=== PATIENT | female | born 1990 | race Caucasian/White ===

== ENCOUNTER 2023-03-30 16:17 | Inpatient (IN) | payer OTHER ==
[2023-03-30 17:09] VITALS: BMI 21.4
[2023-03-30] MEDS ORDERED: POLYETHYLENE GLYCOL (HEALTHYLAX) 3350 17 GM PACKET PO PRN (19:42)
[2023-03-30] MEDS ORDERED: IBUPROFEN 600 MG TABLET (FP) PO PRN (19:42)
[2023-03-30] MEDS ORDERED: hydrOXYzine PAMOATE 25 MG CAPSULE (FP) PO PRN ×2 (19:42→20:19)
[2023-03-30] MEDS ORDERED: NICOTINE 10 MG CARTRIDGE (INHALER) IH PRN (19:42)
[2023-03-30] MEDS ORDERED: BENZOCAINE/MENTHOL (CHLORASEPTIC ) LOZENGE MM PRN (19:42)
[2023-03-30] MEDS ORDERED: COLLOIDAL OATMEAL 1 BAR EACH TP PRN (19:42)
[2023-03-30] MEDS ORDERED: LOPERAMIDE HCL 2 MG CAPSULE PO PRN (19:42)
[2023-03-30] MEDS ORDERED: MELATONIN 5 MG TABLETS PO PRN (19:42)
[2023-03-30] MEDS ORDERED: MAGNESIUM HYDROX 2400MG/30ML ORAL SUSPENSION 30 ML CUP PO PRN (19:42)
[2023-03-30] MEDS ORDERED: ACETAMINOPHEN 325 MG TABLET (FP) PO PRN (19:42)
[2023-03-30] MEDS ORDERED: IBUPROFEN 400 MG TABLET (FP) PO PRN (19:42)
[2023-03-30] MEDS ORDERED: P-EPHED 60MG/TRIPROLIDI 2.5MG TABLET PO PRN (19:42)
[2023-03-30] MEDS ORDERED: MAG HYDROX/AL HYDROX/SIMETH 30 ML UNIT-DOSE CUP PO PRN (19:42)
[2023-03-30] MEDS ORDERED: BENZONATATE 200 MG CAPSULE PO PRN (19:42)
[2023-03-30] MEDS ORDERED: AMMONIUM LACTATE 12% LOTION 225 GM BOTTLE TP PRN (19:42)
[2023-03-30] MEDS ORDERED: guaiFENesin 600 MG TABLET.ER (FP) PO PRN (19:42)
[2023-03-30] MEDS ORDERED: TUBERCULIN PPD 5 TU/0.1ML SYRINGE (IN PATIENT USE ONLY) ID ONE (20:30)
[2023-03-30 21:29] VITALS: RESP 18
[2023-03-30] MEDS ORDERED: THIAMINE HCL 100 MG TABLET (FP) PO SCH (22:00)
[2023-03-30] MEDS: ALBUTEROL SO4 HFA INHALER IH PRN (22:17)
[2023-03-30] MEDS: metroNIDAZOLE 500 MG TABLET PO SCH (22:36)
[2023-03-30] MEDS ORDERED: ONDANSETRON *ODT* 4 MG TABLET SL PRN (23:33)
[2023-03-31 07:15] VITALS: BP 109/74; PULSE 68; TEMP 97.2
[2023-03-31] MEDS ORDERED: diazePAM 5 MG TABLET PO PRN (07:57)
[2023-03-31] MEDS: metroNIDAZOLE 500 MG TABLET PO SCH (09:45)
[2023-03-31] MEDS: ALBUTEROL SO4 HFA INHALER IH PRN (09:48)
[2023-03-31] MEDS ORDERED: EMTRICITABINE 200MG/TENOFOVIR 300MG PO SCH (10:00)
[2023-03-31] MEDS ORDERED: PRENATAL VITAMINS W/ FOLIC ACID TABLET (FP) PO SCH (10:00)
[2023-03-31 12:08] LABS: HEMATOCRIT 40.1 % (32.4-45.2); MCH 29.3 pg (25.7-33.7); MCHC 32.5 g/dl (32.0-36.0); MEAN CELL VOLUME 90.2 fl (80-96); MEAN PLT VOLUME 10.6 fl (7.5-11.1); PLATELET COUNT 318 10^3/uL (134-434); RBC 4.45 M/mm3 (3.60-5.2); RDW 13.8 % (11.6-15.6); WHITE BLOOD COUNT 5.3 K/mm3 (4.0-10.0)
[2023-03-31 12:11] LABS: POTASSIUM 5.1 mmol/L (3.5-5.1)
[2023-03-31 12:14] LABS: CALCIUM 9.3 mg/dL (8.5-10.1)
[2023-03-31 12:15] LABS: ALBUMIN 3.5 g/dl (3.4-5.0); BLOOD UREA NITROGEN 13.9 mg/dL (7-18)
[2023-03-31 12:18] LABS: CREATININE 0.8 mg/dL (0.55-1.3)
[2023-03-31 12:20] LABS: BILIRUBIN,TOTAL 0.9 mg/dL (0.2-1)
[2023-03-31 12:21] LABS: TOT PROT 6.6 g/dl (6.4-8.2)
[2023-03-31 12:42] LABS: SYPHILIS W/ RPR CONF NON-REACTIVE (NONREACTIVE)
[2023-03-31 17:29] LABS: PH,URINE 7.5 (5.0-8.0); URINE APPEARANCE CLEAR; URINE BILIRUBIN NEGATIVE (NEGATIVE); URINE COLOR YELLOW; URINE GLUCOSE (UA) NEGATIVE (NEGATIVE); URINE KETONE NEGATIVE (NEGATIVE); URINE LEUK ESTERASE NEGATIVE (NEGATIVE); URINE NITRITE NEGATIVE (NEGATIVE); URINE PROTEIN NEGATIVE (NEGATIVE); URINE UROBILINOGEN 0.2 mg/dL (0.2-1.0)
[2023-04-02] MEDS ORDERED: FLUCONAZOLE 50 MG TABLET PO ONE (10:00)
== END 2023-03-31 17:27 | disposition left against medical advice (07) | DRG 770 ==
LOC: YASAS 16:17 → Y5N 18:45
PROVIDERS: ADMIT Allergy & Immunology; ATTEND Psychiatry & Neurology Pain Medicine
PROC: HZ42ZZZ Group Counseling for Substance Abuse Treatment, Cognitive-Behavioral (ICD-10-PCS; principal; 2023-03-30)
DX: F14.20 Cocaine dependence, uncomplicated (principal); F15.20 Other stimulant dependence, uncomplicated; F17.290 Nicotine dependence, other tobacco product, uncomplicated
CPT/HCPCS: 36415; 80053; 81003; 81025; 85027; 86780; 86803; 87635; 87811; Q0162